=== PATIENT | female | born 1950 | race Caucasian/White ===

== ENCOUNTER 2019-10-14 18:01 | Emergency (ER) | payer OTHER ==
[~2019-10-14] VITALS: Ht 165.1 cm; Wt 63.0 kg
--- NOTE | 2019-10-14 18:27 | NUR ---
Patient awake alert non distress noted Pa @ bedside
[2019-10-14] MEDS ORDERED: IBUPROFEN 400 MG TABLET PO ONE (18:30)
[2019-10-14] MEDS ORDERED: IBUPROFEN 400 MG TABLET ONE (18:44)
--- NOTE | 2019-10-14 19:56 | NUR ---
Patient discharged to home in stable condition. Written and verbal after care instructions given. Patient verbalizes understanding of instruction. Pt ambulatory with a steady gait
[2019-10-14 21:48] VITALS: BP 141/87
== END 2019-10-14 19:56 | disposition home or self-care (01) ==
LOC: ER 18:03
DX: R07.89 Other chest pain (principal); X50.1XXA Overexertion from prolonged static or awkward postures, initial encounter; Y93.89 Activity, other specified; Y92.89 Other specified places as the place of occurrence of the external cause; Y99.8 Other external cause status
CPT/HCPCS: 71100-TC

== ENCOUNTER 2023-02-24 23:51 | Emergency (ER) | payer OTHER ==
[~2023-02-24] VITALS: Ht 165.1 cm; Wt 63.5 kg
[2023-02-25 00:40] VITALS: BP 126/82
[2023-02-25] MEDS ORDERED: TDAP [DIPH/PERTUSSIS/TET] 0.5 ML VIAL IM ONE ×2 (00:59→01:00)
--- NOTE | 2023-02-25 01:58 | NUR ---
Patient discharged to home in stable condition. Written and verbal after care instructions given. Patient verbalizes understanding of instruction.
== END 2023-02-25 02:07 | disposition home or self-care (01) ==
LOC: EDUNIT# 23:51 → ER 23:56
DX: S81.011A Laceration without foreign body, right knee, initial encounter (principal); W01.0XXA Fall on same level from slipping, tripping and stumbling without subsequent striking against object, initial encounter; Y93.01 Activity, walking, marching and hiking; Y92.89 Other specified places as the place of occurrence of the external cause; Y99.8 Other external cause status
CPT/HCPCS: 99283; 12001; 90471; 90715; 73564; A6403